=== PATIENT | male | born 1965 | race Caucasian/White ===

== ENCOUNTER 2023-10-08 15:42 | Emergency (ER) | payer MEDICAID ==
[~2023-10-08] VITALS: Ht 154.9 cm; Wt 63.6 kg
[~2023-10-08 15:42] MED LIST: CIPR-278 PO
[2023-10-08 15:45] VITALS: BP 121/76; PULSE 96; RESP 16; TEMP 97.9
[2023-10-08 16:08] LABS: BASOPHILS % (AUTO) 0.5 % (0.0-2.0); EOSINOPHILS % (AUTO) 1.3 % (1.0-6.0); HEMATOCRIT 41.8 % (41-53); HEMOGLOBIN 14.1 g/dL (13.5-17.5); LYMPHOCYTES # (AUTO) 2.6 K/uL (1.0-4.8); LYMPHOCYTES % (AUTO) 23.1 % (22.0-44.0); MEAN CORPUSCULAR HEMOGLOBIN 29.5 pg (26.0-34.0); MEAN CORPUSCULAR HGB CONC 33.8 G/dL (31.0-37.0); MEAN CORPUSCULAR VOLUME 87 fL (80-100); MONOCYTES # (AUTO) 0.9 K/uL (0.1-1.0); MONOCYTES % (AUTO) 8.3 % (2.0-9.0); NEUTROPHILS # (AUTO) 7.6 K/uL (1.8-7.7); NEUTROPHILS % (AUTO) 66.8 % (40.0-70.0); PLATELET COUNT (AUTO) 295 K/uL (150-450); RED BLOOD CELL COUNT(AUTO) 4.78 MIL/uL (4.50-5.90); RED CELL DISTRIBUTION WIDTH 13.7 % (11.5-14.5); WHITE BLOOD COUNT (AUTO) 11.4 K/uL (4.5-11.0)
[2023-10-08 16:17] LABS: ANION GAP 10 mmol/L (8-16); CALCIUM, TOTAL 9.1 mg/dL (8.8-10.5); CARBON DIOXIDE 25 mmol/L (22-29); CHLORIDE 102 mmol/L (98-107); CREATININE 0.84 mg/dL (0.60-1.30); GLOMERULAR FILTR. RATE CALC > 60 mL/min (>60); GLUCOSE,RANDOM 130 mg/dL (70-110); POTASSIUM 3.2 mmol/L (3.5-5.1); SODIUM SERUM 137 mmol/L (136-145); UREA NITROGEN, BLOOD 8 mg/dL (7-18)
[2023-10-08 16:23] LABS: ALANINE AMINOTRANSFERASE 30 U/L (12-78); ALBUMIN 3.4 g/dL (3.4-5.0); ALKALINE PHOSPHATASE 117 U/L (46-116); ASPARTATE AMINOTRANSFERASE 37 U/L (15-37); BILIRUBIN,TOTAL 0.6 mg/dL (0.1-1.0); TOTAL PROTEIN, SERUM 8.7 g/dL (6.4-8.2)
[2023-10-08 16:25] LABS: TROPONIN I-HIGH SENSITIVITY 6 ng/L (<76)
[2023-10-08] MEDS ORDERED: ALBU18HF12 IH (16:59)
[2023-10-08] MEDS ORDERED: CLOT15CR23 TP (16:59)
[2023-10-08] MEDS ORDERED: AZIT-103 PO (17:55)
[2023-10-08] MEDS: POTASSIUM CHLORIDE 20 MEQ ER TABLET PO ONE (18:08)
[2023-10-08] MEDS: AZITHROMYCIN 500 MG TABLET PO ONE (18:08)
== END 2023-10-08 18:21 | disposition left against medical advice (07) ==
LOC: EMS 15:48
DX: J18.9 Pneumonia, unspecified organism (principal); R07.89 Other chest pain; Z98.890 Other specified postprocedural states
CPT/HCPCS: 99285; 71045; 80053; 83880; 84484; 85025; 36415; 93005; Q9967

== ENCOUNTER 2024-02-20 21:41 | Emergency (ER) | payer MEDICAID ==
[~2024-02-20] VITALS: Ht 152.4 cm; Wt 63.6 kg
[~2024-02-20 21:41] MED LIST changes: +ALBU18HF12 IH; +AZIT-164 PO; -CIPR-278 PO; +CLOT15CR23 TP
[2024-02-20 21:43] VITALS: TEMP 98.4
[2024-02-21 00:16] LABS: BASOPHILS % (AUTO) 0.6 % (0.0-2.0); EOSINOPHILS % (AUTO) 1.4 % (1.0-6.0); HEMATOCRIT 41.2 % (41-53); HEMOGLOBIN 13.7 g/dL (13.5-17.5); LYMPHOCYTES # (AUTO) 3.3 K/uL (1.0-4.8); LYMPHOCYTES % (AUTO) 27.2 % (22.0-44.0); MEAN CORPUSCULAR HEMOGLOBIN 29.5 pg (26.0-34.0); MEAN CORPUSCULAR HGB CONC 33.2 G/dL (31.0-37.0); MEAN CORPUSCULAR VOLUME 89 fL (80-100); MONOCYTES # (AUTO) 1.2 K/uL (0.1-1.0); NEUTROPHILS # (AUTO) 7.3 K/uL (1.8-7.7); NEUTROPHILS % (AUTO) 60.8 % (40.0-70.0); PLATELET COUNT (AUTO) 305 K/uL (150-450); RED BLOOD CELL COUNT(AUTO) 4.63 MIL/uL (4.50-5.90)
[2024-02-21 00:26] LABS: ANION GAP 9 mmol/L (8-16); CALCIUM, TOTAL 8.7 mg/dL (8.8-10.5); CARBON DIOXIDE 29 mmol/L (22-29); CHLORIDE 104 mmol/L (98-107); CREATININE 1.04 mg/dL (0.60-1.30); GLOMERULAR FILTR. RATE CALC > 60 mL/min (>60); GLUCOSE,RANDOM 95 mg/dL (70-110); POTASSIUM 3.9 mmol/L (3.5-5.1); SODIUM SERUM 142 mmol/L (136-145); UREA NITROGEN, BLOOD 7 mg/dL (7-18)
[2024-02-21 01:12] LABS: COVID AG,FIA SOURCE NASAL SWAB
[2024-02-21 01:18] LABS: APPEARANCE,URINE CLEAR (CLEAR); BILIRUBIN,URINE NEGATIVE (NEGATIVE); COLOR,URINE COLORLESS (YELLOW); GLUCOSE, URINE (UA) NEGATIVE (NEGATIVE); KETONES,URINE NEGATIVE (NEGATIVE); LEUKOCYTE ESTERASE ,URINE NEGATIVE (NEGATIVE); NITRATE,URINE NEGATIVE (NEGATIVE); OCCULT BLOOD,URINE NEGATIVE (NEGATIVE); PROTEIN,URINE NEGATIVE (NEGATIVE); SPECIFIC GRAVITIY, URINE 1.006 (1.003-1.030); UROBILINOGEN,URINE <=1.0 mg/dL (<=1.0)
[2024-02-21] MEDS: SODIUM CHLORIDE 0.9% 1,000 ML IV ONE (01:29)
[2024-02-21 01:32] LABS: INFLUENZA TYPE A NEGATIVE FOR TYPE A (NEGATIVE); INFLUENZA TYPE B NEGATIVE FOR TYPE B (NEGATIVE); SARS-COV2 (COVID) ANTIGEN,FIA Negative (Negative)
[2024-02-21] MEDS: CefTRIAXone 1 GM/DEXTROSE 50 ML IV ONE (02:28)
[2024-02-21] MEDS: AZITHROMYCIN 500 MG/NS 250 ML IV ONE (02:29)
[2024-02-21 02:41] LABS: LACTIC ACID 1.1 mmol/L (0.4-2.0)
[2024-02-21 10:25] VITALS: BP 130/78; PULSE 76; RESP 18
== END 2024-02-21 13:08 | disposition left against medical advice (07) ==
LOC: EMS 21:41 → EDH 02-21 07:55 → UNDOADMIN 02-21 07:55 → EMS 02-21 13:08
DX: J18.9 Pneumonia, unspecified organism (principal); J98.4 Other disorders of lung; R06.02 Shortness of breath; Z20.822 Contact with and (suspected) exposure to COVID-19
CPT/HCPCS: 99285; 87426; 80048; 81003; 83605; 85025; 87040; 87804; 36415; 84145; 71045; J0456; J0696; 96361; 96365; 96368; J7030